=== PATIENT | female | born 2000 | race Caucasian/White ===

== ENCOUNTER 2022-05-24 17:19 | Emergency (ER) | payer BC, SELFPAY ==
[2022-05-24 17:26] VITALS: BP 122/79; PULSE 101; RESP 16; TEMP 36.8; O2SAT 100; BMI 23.4
--- NOTE | 2022-05-24 18:24 | ED.GENADULT ---
HPI - General Adult General Chief complaint: Abdominal Pain Stated complaint: Constipation, Bloating, Back pain Time Seen by Provider: 05/24/22 17:22 History of Present Illness HPI narrative: 22-year-old young woman presenting to the emergency department with concern of abdominal discomfort and bloating. Produced small pellets of stool earlier today. Seems to be struggling with constipation over the last couple of weeks. Has had some liquid stool during this time though as well. Does have a history of IBS which she controls through good diet and exercise. Does lift weights regularly and does do cardio; generally walking sounds like partly to keep her guts moving. She recalls her sister had a what sounds like obstipation requiring manual disimpaction she is worried that might be necessary here. She has just never felt this way before. Does have a sense of nausea but no vomiting. No fever. No hematochezia described. Has tried what sounds like Dulcolax equivalent and warm enema and warm prune juice. Magnesium citrate which she says would normally have worked great is not available. Related Data Home Medications Medication Instructions Recorded Confirmed No Known Home Medications 05/24/22 05/24/22 Allergies Allergy/AdvReac Type Severity Reaction Status Date / Time No Known Drug Allergies Allergy Verified 05/24/22 17:31 Review of Systems Status of ROS: Reports: 6 or more systems reviewed and unremarkable except as noted in History and below [facility] Social History Smoking Status: Never smoker Do you use any of these nicotine containing products: None Second hand tobacco smoke exposure: No How often do you have a drink containing alcohol: monthly or less How often do you have six or more drinks on one occasion: Never AUDIT-C Alcohol total score: 1 Non-prescribed substance use: denies use Exam Narrative: Exam Narrative: very pleasant. nad though seems a little uncomfortable. cn 2 - 12 intact. well-muscled. breathing easily;not splinting. skin is warm and dry. cardiovascular with a little elevated rate. abd soft, full and mildly uncomfortable without mass or peritoneal signs. we will defer rectal exam. Const: Vital Signs, click to edit/add: Vital Signs - 24 hr 05/24/22 17:26 Temperature 98.2 F Pulse Rate [Right Pulse Oximeter] 101 H Respiratory Rate 16 Blood Pressure [Ri ght Upper Arm] 122/79 Pulse Oximetry 100 Oxygen Delivery Me thod Room Air Documenting provider has reviewed patient's vital signs: yes Course Vital Signs Vital signs: Initial Vital Signs Temperature 98.2 F 05/24/22 17:26 Temperature Source Temporal Artery Scan 05/24/22 17:26 Pulse Rate 101 H 05/24/22 17:26 Respiratory Rate 16 05/24/22 17:26 Blood Pressure 122/79 05/24/22 17:26 Blood Pressure Mean 93 05/24/22 17:26 Blood Pressure Position Sitting 05/24/22 17:26 Pulse Oximetry 100 05/24/22 17:26 Oxygen Delivery Method 05/24/22 17:26 Vital Signs Temperature 98.2 F 05/24/22 17:26 Pulse Rate 101 H 05/24/22 17:26 Respiratory Rate 16 05/24/22 17:26 Blood Pressure 122/79 05/24/22 17:26 Pulse Oximetry 100 05/24/22 17:26 Oxygen Delivery Method 05/24/22 17:26 Temperature 98.2 F 05/24/22 17:26 Pulse Rate 101 H 05/24/22 17:26 Respiratory Rate 16 05/24/22 17:26 Blood Pressure 122/79 05/24/22 17:26 Pulse Oximetry 100 05/24/22 17:26 Oxygen Delivery Method 05/24/22 17:26 Medical Decision Making MDM Narrative Medical decision making narrative: benign belly. i think can yet do outpatient treatment. Discharge Plan Discharge Clinical Impression: Constipation, IBS (irritable bowel syndrome) Patient Disposition: Home, Self-Care Condition: Stable Additional Instructions: Continue to focus on hydration. Eating a grapefruit as one might an orange could be helpful. Pineapple. Over the next few days I would take at least 3 doses in other words 3 tbsp in 8 oz of liquid of MiraLax equivalent by noon. Take some when you get back home tonight. Adjust then to stool consistency over the next 1-2 weeks. Other options for oral treatment would be mineral oil, senna-S 1-2 tablets twice a day. All of these things can be taken together. Sorry magnesium citrate isn't available. I would try fleets Phospho-Soda or mineral oil enemas repeating in an hour even up to 3 times if you are not having good result. You could also dose 2 of them at once. This is provided that you think there is stool in the rectal vault. Return otherwise for marked increase in persistent pain, repeated vomiting, associated fever. Prescriptions: No Action No Known Home Medications Follow Up/Referrals: Pastora Gutiérrez PA-C [Primary Care Provider] - Stand Alone Forms: [employer] Info Instructions
== END 2022-05-24 18:09 | disposition home or self-care (01) ==
PROVIDERS: Emergency Provider Family Medicine; PCP Physician Assistant Medical
DX: K58.1 Irritable bowel syndrome with constipation (principal)
CPT/HCPCS: 99282; 99283